=== PATIENT | female | born 1980 | race Two or more races ===

== ENCOUNTER 2024-06-22 20:06 | Emergency (ER) | payer OTHER ==
[~2024-06-22] VITALS: Ht 170.2 cm; Wt 81.6 kg
[2024-06-22 20:48] LABS: BASOPHILS # (AUTO) 0.1 K/UL (0.0-0.2); BASOPHILS % (AUTO) 0.9 % (0.0-2.0); EOSINOPHILS # (AUTO) 0.2 K/uL (0.0-0.7); EOSINOPHILS % (AUTO) 2.8 % (0.0-7.0); HEMATOCRIT 28.5 % (31.2-41.9); HEMOGLOBIN 9.3 g/dL (10.9-14.3); LYMPHOCYTES # (AUTO) 2.1 K/uL (0.8-4.8); MEAN CORPUSCULAR HEMOGLOBIN 24.2 uug (24.7-32.8); MEAN CORPUSCULAR HGB CONC 33 g/dL (32.3-35.6); MEAN CORPUSCULAR VOLUME 74.2 fL (75.5-95.3); MONOCYTES # (AUTO) 0.6 K/uL (0.1-1.30); NEUTROPHILS # (AUTO) 4.8 K/uL (1.8-8.9); NEUTROPHILS % (AUTO) 61.3 % (38.5-71.5); PLATELET COUNT (AUTO) 370 K/uL (179-408); RED BLOOD CELL COUNT(AUTO) 3.84 MIL/uL (3.63-4.92); RED CELL DISTRIBUTION WIDTH 17.2 % (12.3-17.7); WHITE BLOOD COUNT (AUTO) 7.9 K/uL (3.8-11.8)
[2024-06-22 20:50] LABS: DIFFERENTIAL COMMENT 1
[2024-06-22 20:57] LABS: CALCIUM 8.5 mg/dL (8.5-10.1); CARBON DIOXIDE 27 mmol/L (21-32); CHLORIDE 105 mmol/L (98-107); CREATININE 0.9 mg/dL (0.6-1.3); GLUCOSE 101 mg/dL (74-106); POTASSIUM 3.9 mmol/L (3.5-5.1); SODIUM SERUM 139 mmol/L (136-145); UREA NITROGEN, BLOOD 22 mg/dL (7-18)
[2024-06-22 21:03] LABS: ALANINE AMINOTRANSFERASE 17 U/L (14-59); ALBUMIN 3.4 g/dL (3.4-5.0); ALKALINE PHOSPHATASE 89 U/L (50-136); ASPARTATE AMINOTRANSFERASE 11 U/L (15-37); BILIRUBIN,TOTAL 0.1 mg/dL (0.2-1.0); TOTAL PROTEIN, SERUM 7.1 g/dL (6.4-8.2)
[2024-06-22 21:14] LABS: PREGNANCY TEST SERUM QUAN < 1 miul/L (0-6)
[2024-06-22] MEDS ORDERED: FERR-68 PO (23:28)
[2024-06-22] MEDS ORDERED: NORE-122 PO (23:28)
[2024-06-22 23:38] VITALS: BP 121/78; O2SAT 98
== END 2024-06-22 23:39 | disposition home or self-care (01) ==
LOC: ER 20:12
DX: N93.9 Abnormal uterine and vaginal bleeding, unspecified (principal); R42 Dizziness and giddiness; R53.83 Other fatigue; R10.2 Pelvic and perineal pain; Z88.0 Allergy status to penicillin
CPT/HCPCS: 36415; 85025; A4606; A4663